=== PATIENT | female | born 1975 | race Caucasian/White ===

== ENCOUNTER 2018-03-11 17:52 | Inpatient (IN) ==
[2018-03-11] MEDS ORDERED: methylPREDNISolone SOD SUC 125 MG/2 ML VIAL IV STA (18:03)
[2018-03-11] MEDS ORDERED: ORPHENADRINE 60 MG/2 ML VIAL IV STA (18:03)
[2018-03-11] MEDS ORDERED: KETOROLAC 30 MG/1 ML VIAL IV STA (18:03)
[2018-03-11] MEDS ORDERED: METOCLOPRAMIDE 10 MG/2 ML VIAL ONE (18:14)
[2018-03-11] MEDS ORDERED: METOCLOPRAMIDE 10 MG/2 ML VIAL IV STA (18:15)
[2018-03-11] MEDS ORDERED: methylPREDNISolone SOD SUC 125 MG/2 ML VIAL ONE (18:40)
[2018-03-11] MEDS ORDERED: ORPHENADRINE 60 MG/2 ML VIAL ONE (18:40)
[2018-03-11] MEDS ORDERED: KETOROLAC 30 MG/1 ML VIAL ONE ×2 (18:41→20:08)
[2018-03-11] MEDS ORDERED: ONDANSETRON 4 MG/2 ML VIAL IV STA (18:54)
[2018-03-11] MEDS ORDERED: ONDANSETRON 4 MG/2 ML VIAL ONE (18:59)
[2018-03-11] MEDS ORDERED: fentaNYL 100 MCG/2 ML VIAL IV STA (19:46)
[2018-03-11 20:05] LABS: Basophils % 0.3 % (0.0-0.8); Eosinophils # 0.1 10*3/uL (0.0-0.87); Eosinophils % 0.7 % (0.00-10.9); Hematocrit 36.3 VOL% (35.7-47.0); Hemoglobin 11.8 GM/DL (12.0-16.0); Immature Granulocytes % 0.4 %; Immature Granulocytes Absolute 0.06 #; Lymphocytes # 2.4 10*3/uL (1.4-4.0); Lymphocytes % 18.1 % (21.3-54.2); Mean Corpuscular HGB Conc 32.5 GM/DL (32-36); Mean Corpuscular Hemoglobin 28 PG (27-34); Mean Corpuscular Volume 87.1 FL (87-102); Mean Platelet Volume 9.6 FL (9.6-12.0); Monocytes # 0.5 10*3/uL (0.11-0.8); Monocytes % 3.4 % (1.7-12.7); Neutrophils # 10.3 10*3/uL (1.4-7.4); Neutrophils % 77.1 % (38.7-73.9); Platelet Count 304 T/CUMM (130-400); Red Blood Count 4.17 MC/CUMM (3.8-5.5); Red Cell Distribution Width 14.5 % (9.3-17.3); White Blood Count 13.4 T/CUMM (4-12)
[2018-03-11 20:20] LABS: PT Patient Result 10.6 SECS
[2018-03-11 20:21] LABS: Alanine Aminotransferase 18 U/L (13-56); Albumin 2.9 G/DL (3.4-5.0); Alkaline Phosphatase 100 U/L (45-117); Aspartate Amino Transferase 11 U/L (0-37); Bilirubin,Total < 0.39 MG/DL (0.2-1.0); Blood Urea Nitrogen 14 MG/DL (7-18); Calcium 8.5 MG/DL (8.5-10.1); Glucose 134 MG/DL (74-106); Osmolality,Calculated 272.1 MOS/KG (273-304); Potassium 3.1 MMOL/L (3.5-5.1); Sodium 135 MMOL/L (136-145); Total Protein 6.9 G/DL (6.4-8.3)
[2018-03-11] MEDS ORDERED: ACETAMINOPHEN 325 MG TABLET PO PRN (21:18)
[2018-03-11] MEDS ORDERED: hydroCHLOROthiazide 25 MG TABLET PO PRN (21:45)
[2018-03-11] MEDS: lamoTRIgine 100 MG TABLET PO SCH (23:24)
[2018-03-11] MEDS: ALPRAZolam 0.5 MG TABLET PO SCH (23:52)
[2018-03-11] MEDS: MORPHINE 4 MG/1 ML VIAL IV SCH (23:52)
[2018-03-11] MEDS: ONDANSETRON 4 MG/2 ML VIAL IV PRN (23:52)
[2018-03-12] MEDS: NICOTINE 21 MG/24 HR PATCH TRANSDERM PRN (00:18)
[2018-03-12] MEDS: PROMETHAZINE 25 MG TABLET PO PRN ×3 (01:14→19:11)
[2018-03-12] MEDS: KETOROLAC 30 MG/1 ML VIAL IV SCH ×4 (02:00→21:10)
[2018-03-12] MEDS: MORPHINE 4 MG/1 ML VIAL IV SCH ×6 (02:00→22:35)
[2018-03-12] MEDS: ONDANSETRON 4 MG/2 ML VIAL IV PRN ×2 (05:57→22:32)
[2018-03-12 06:48] LABS: Basophils % 0.1 % (0.0-0.8); Hematocrit 38.4 VOL% (35.7-47.0); Hemoglobin 12.8 GM/DL (12.0-16.0); Immature Granulocytes % 0.3 %; Immature Granulocytes Absolute 0.03 #; Lymphocytes % 10.4 % (21.3-54.2); Mean Corpuscular HGB Conc 33.3 GM/DL (32-36); Mean Corpuscular Hemoglobin 28 PG (27-34); Mean Corpuscular Volume 84.6 FL (87-102); Monocytes # 0.1 10*3/uL (0.11-0.8); Monocytes % 0.8 % (1.7-12.7); Neutrophils % 88.4 % (38.7-73.9); Platelet Count 325 T/CUMM (130-400); Red Blood Count 4.54 MC/CUMM (3.8-5.5); Red Cell Distribution Width 14.6 % (9.3-17.3); White Blood Count 9.1 T/CUMM (4-12)
[2018-03-12 07:20] LABS: Calcium 9.1 MG/DL (8.5-10.1); Osmolality,Calculated 275.8 MOS/KG (273-304); Potassium 3.3 MMOL/L (3.5-5.1)
[2018-03-12] MEDS: tiZANidine 4 MG TABLET PO SCH ×3 (09:22→21:10)
[2018-03-12] MEDS: lamoTRIgine 100 MG TABLET PO SCH ×2 (09:22→21:10)
[2018-03-12] MEDS: ALPRAZolam 0.5 MG TABLET PO SCH ×2 (09:22→21:10)
[2018-03-12] MEDS: GABAPENTIN 600 MG TABLET PO SCH ×3 (09:22→21:10)
[2018-03-12] MEDS: ESTRADIOL 1 MG TABLET PO SCH (09:22)
[2018-03-12] MEDS: POTASSIUM CHLORIDE 10 MEQ TABLET PO SCH (09:23)
[2018-03-12] MEDS: DULoxetine 30 MG CAPSULE PO SCH (09:23)
[2018-03-12] MEDS: oxyCODONE/ACETAMINOPHEN 5-325 MG TABLET PO SCH ×3 (09:24→21:10)
[2018-03-12] MEDS: ENOXAPARIN 40 MG/0.4 ML SYRINGE SUBCUT SCH (09:24)
[2018-03-12] MEDS: LIDOCAINE 5% PATCH TRANSDERM SCH (09:24)
[2018-03-12] MEDS: LORazepam 0.5 MG TABLET PO PRN (10:35)
[2018-03-12] MEDS: ATORVASTATIN 40 MG TABLET PO SCH (21:10)
[2018-03-13] MEDS: KETOROLAC 30 MG/1 ML VIAL IV SCH ×4 (02:10→20:25)
[2018-03-13] MEDS: PROMETHAZINE 25 MG TABLET PO PRN ×3 (02:10→18:24)
[2018-03-13] MEDS: MORPHINE 4 MG/1 ML VIAL IV SCH ×6 (02:10→21:25)
[2018-03-13 05:40] LABS: Basophils % 0.3 % (0.0-0.8); Eosinophils # 0.1 10*3/uL (0.0-0.87); Eosinophils % 0.8 % (0.00-10.9); Hemoglobin 12.4 GM/DL (12.0-16.0); Immature Granulocytes % 0.3 %; Immature Granulocytes Absolute 0.03 #; Lymphocytes # 3.5 10*3/uL (1.4-4.0); Lymphocytes % 35.5 % (21.3-54.2); Mean Corpuscular HGB Conc 31.8 GM/DL (32-36); Mean Corpuscular Hemoglobin 28 PG (27-34); Mean Platelet Volume 9.6 FL (9.6-12.0); Monocytes # 0.4 10*3/uL (0.11-0.8); Monocytes % 4.4 % (1.7-12.7); Neutrophils # 5.8 10*3/uL (1.4-7.4); Neutrophils % 58.7 % (38.7-73.9); Platelet Count 285 T/CUMM (130-400); Red Blood Count 4.38 MC/CUMM (3.8-5.5); Red Cell Distribution Width 14.6 % (9.3-17.3); White Blood Count 9.9 T/CUMM (4-12)
[2018-03-13] MEDS: LORazepam 0.5 MG TABLET PO PRN (06:02)
[2018-03-13 06:17] LABS: Calcium 8.4 MG/DL (8.5-10.1); Osmolality,Calculated 283.3 MOS/KG (273-304); Potassium 3.3 MMOL/L (3.5-5.1)
[2018-03-13] MEDS: tiZANidine 4 MG TABLET PO SCH ×3 (08:31→20:24)
[2018-03-13] MEDS: GABAPENTIN 600 MG TABLET PO SCH ×3 (08:31→20:23)
[2018-03-13] MEDS: lamoTRIgine 100 MG TABLET PO SCH ×2 (08:31→20:25)
[2018-03-13] MEDS: ESTRADIOL 1 MG TABLET PO SCH (08:31)
[2018-03-13] MEDS: ALPRAZolam 0.5 MG TABLET PO SCH ×2 (08:31→20:23)
[2018-03-13] MEDS: oxyCODONE/ACETAMINOPHEN 5-325 MG TABLET PO SCH ×3 (08:31→20:25)
[2018-03-13] MEDS: POTASSIUM CHLORIDE 10 MEQ TABLET PO SCH (08:31)
[2018-03-13] MEDS: DULoxetine 30 MG CAPSULE PO SCH (08:31)
[2018-03-13] MEDS: LIDOCAINE 5% PATCH TRANSDERM SCH (08:32)
[2018-03-13] MEDS: ENOXAPARIN 40 MG/0.4 ML SYRINGE SUBCUT SCH (08:32)
[2018-03-13] MEDS: ONDANSETRON 4 MG/2 ML VIAL IV PRN ×2 (14:43→21:26)
[2018-03-13] MEDS: ATORVASTATIN 40 MG TABLET PO SCH (20:24)
[2018-03-14] MEDS: MORPHINE 4 MG/1 ML VIAL IV SCH ×6 (02:24→21:09)
[2018-03-14] MEDS: KETOROLAC 30 MG/1 ML VIAL IV SCH ×4 (02:24→20:06)
[2018-03-14 04:24] LABS: Calcium 8.3 MG/DL (8.5-10.1); Osmolality,Calculated 283.1 MOS/KG (273-304); Potassium 3.8 MMOL/L (3.5-5.1)
[2018-03-14] MEDS: LORazepam 0.5 MG TABLET PO PRN (05:02)
[2018-03-14] MEDS: PROMETHAZINE 25 MG TABLET PO PRN ×3 (06:10→21:09)
[2018-03-14] MEDS: ESTRADIOL 1 MG TABLET PO SCH (09:16)
[2018-03-14] MEDS: ALPRAZolam 0.5 MG TABLET PO SCH ×2 (09:16→20:09)
[2018-03-14] MEDS: GABAPENTIN 600 MG TABLET PO SCH ×3 (09:16→20:07)
[2018-03-14] MEDS: lamoTRIgine 100 MG TABLET PO SCH ×2 (09:16→20:07)
[2018-03-14] MEDS: POTASSIUM CHLORIDE 10 MEQ TABLET PO SCH (09:16)
[2018-03-14] MEDS: oxyCODONE/ACETAMINOPHEN 5-325 MG TABLET PO SCH ×3 (09:17→20:09)
[2018-03-14] MEDS: ENOXAPARIN 40 MG/0.4 ML SYRINGE SUBCUT SCH (09:17)
[2018-03-14] MEDS: DULoxetine 30 MG CAPSULE PO SCH (09:17)
[2018-03-14] MEDS: LIDOCAINE 5% PATCH TRANSDERM SCH (09:18)
[2018-03-14] MEDS: tiZANidine 4 MG TABLET PO SCH ×3 (09:19→20:08)
[2018-03-14] MEDS: NICOTINE 21 MG/24 HR PATCH TRANSDERM PRN (09:33)
[2018-03-14] MEDS: ONDANSETRON 4 MG/2 ML VIAL IV PRN (17:37)
[2018-03-14] MEDS: ATORVASTATIN 40 MG TABLET PO SCH (20:08)
[2018-03-15] MEDS: MORPHINE 4 MG/1 ML VIAL IV SCH ×5 (01:04→17:22)
[2018-03-15] MEDS: KETOROLAC 30 MG/1 ML VIAL IV SCH ×4 (01:04→21:03)
[2018-03-15] MEDS: BISACODYL 5 MG TABLET PO PRN ×2 (01:10→10:19)
[2018-03-15] MEDS: ONDANSETRON 4 MG/2 ML VIAL IV PRN ×2 (01:13→10:22)
[2018-03-15] MEDS: LORazepam 0.5 MG TABLET PO PRN (05:02)
[2018-03-15] MEDS: PROMETHAZINE 25 MG TABLET PO PRN ×3 (05:02→22:19)
[2018-03-15] MEDS: LIDOCAINE 5% PATCH TRANSDERM SCH (10:07)
[2018-03-15] MEDS: ENOXAPARIN 40 MG/0.4 ML SYRINGE SUBCUT SCH (10:09)
[2018-03-15] MEDS: NICOTINE 21 MG/24 HR PATCH TRANSDERM PRN (10:12)
[2018-03-15] MEDS: ESTRADIOL 1 MG TABLET PO SCH (10:17)
[2018-03-15] MEDS: GABAPENTIN 600 MG TABLET PO SCH ×3 (10:17→22:19)
[2018-03-15] MEDS: POTASSIUM CHLORIDE 10 MEQ TABLET PO SCH (10:17)
[2018-03-15] MEDS: ALPRAZolam 0.5 MG TABLET PO SCH ×2 (10:17→22:20)
[2018-03-15] MEDS: lamoTRIgine 100 MG TABLET PO SCH ×2 (10:18→22:19)
[2018-03-15] MEDS: DULoxetine 30 MG CAPSULE PO SCH (10:18)
[2018-03-15] MEDS: oxyCODONE/ACETAMINOPHEN 5-325 MG TABLET PO SCH ×3 (10:18→22:20)
[2018-03-15] MEDS: tiZANidine 4 MG TABLET PO SCH ×3 (10:18→22:20)
[2018-03-15] MEDS: DOCUSATE SODIUM 100 MG CAPSULE PO SCH (22:19)
[2018-03-15] MEDS: ATORVASTATIN 40 MG TABLET PO SCH (22:19)
[2018-03-16] MEDS: MORPHINE 4 MG/1 ML VIAL IV SCH ×5 (01:00→14:32)
[2018-03-16] MEDS: KETOROLAC 30 MG/1 ML VIAL IV SCH ×3 (01:01→15:11)
[2018-03-16] MEDS: ONDANSETRON 4 MG/2 ML VIAL IV PRN ×2 (01:01→07:50)
[2018-03-16] MEDS: BISACODYL 5 MG TABLET PO PRN (06:10)
[2018-03-16] MEDS ORDERED: SIMETHICONE CHEW 125 MG TABLET PO PRN (08:03)
[2018-03-16] MEDS ORDERED: POLYETHYLENE GLYCOL POWDER 17 GM PACK PO SCH (09:00)
[2018-03-16] MEDS: DULoxetine 30 MG CAPSULE PO SCH (09:37)
[2018-03-16] MEDS: ESTRADIOL 1 MG TABLET PO SCH (09:37)
[2018-03-16] MEDS: DOCUSATE SODIUM 100 MG CAPSULE PO SCH (09:37)
[2018-03-16] MEDS: POTASSIUM CHLORIDE 10 MEQ TABLET PO SCH (09:37)
[2018-03-16] MEDS: lamoTRIgine 100 MG TABLET PO SCH (09:37)
[2018-03-16] MEDS: LIDOCAINE 5% PATCH TRANSDERM SCH (09:38)
[2018-03-16] MEDS: ENOXAPARIN 40 MG/0.4 ML SYRINGE SUBCUT SCH (09:38)
[2018-03-16] MEDS: GABAPENTIN 600 MG TABLET PO SCH ×2 (09:39→15:10)
[2018-03-16] MEDS: oxyCODONE/ACETAMINOPHEN 5-325 MG TABLET PO SCH ×2 (09:39→15:00)
[2018-03-16] MEDS: ALPRAZolam 0.5 MG TABLET PO SCH (09:40)
[2018-03-16] MEDS: tiZANidine 4 MG TABLET PO SCH ×2 (09:40→15:10)
[2018-03-16 10:52] VITALS: BP 101/46
[2018-03-16] MEDS: NICOTINE 21 MG/24 HR PATCH TRANSDERM PRN (15:14)
== END 2018-03-16 15:18 | DRG 347 ==
LOC: EDUNIT# → EDBD → N.ED 17:52 → N.EDINP 17:52 → SUATTDRO 20:46 → N.EDINP 22:24 → N.3E 22:56 → SUATTDRO 03-13 11:36
PROVIDERS: ADMIT Internal Medicine; ATTEND Internal Medicine Geriatric Medicine

== ENCOUNTER 2018-03-18 14:44 | Inpatient (IN) ==
[2018-03-18] MEDS ORDERED: ONDANSETRON 4 MG/2 ML VIAL ONE (15:44)
[2018-03-18] MEDS ORDERED: HYDROmorphone 2 MG/1 ML VIAL ONE (15:45)
[2018-03-18] MEDS ORDERED: HYDROmorphone 2 MG/1 ML VIAL IV STA (15:51)
[2018-03-18] MEDS ORDERED: ONDANSETRON 4 MG/2 ML VIAL IV STA (15:51)
[2018-03-18 16:27] LABS: Basophils % 0.1 % (0.0-0.8); Eosinophils # 0.1 10*3/uL (0.0-0.87); Eosinophils % 1.1 % (0.00-10.9); Hematocrit 31.4 VOL% (35.7-47.0); Immature Granulocytes % 1.1 %; Immature Granulocytes Absolute 0.09 #; Lymphocytes # 1.6 10*3/uL (1.4-4.0); Lymphocytes % 19.2 % (21.3-54.2); Mean Corpuscular HGB Conc 31.8 GM/DL (32-36); Mean Corpuscular Hemoglobin 29 PG (27-34); Mean Platelet Volume 9.3 FL (9.6-12.0); Monocytes # 0.5 10*3/uL (0.11-0.8); NRBC # 0.02 10*3/uL; Neutrophils # 5.9 10*3/uL (1.4-7.4); Neutrophils % 72.5 % (38.7-73.9); Platelet Count 243 T/CUMM (130-400); Red Blood Count 3.45 MC/CUMM (3.8-5.5); Red Cell Distribution Width 15.9 % (9.3-17.3); White Blood Count 8.2 T/CUMM (4-12)
[2018-03-18 16:40] LABS: INR 0.9; Partial Thromboplastin Time 29.9 SECS (0-40)
[2018-03-18 16:43] LABS: ABG Base Excess 7.5 MMOL/L (-2.5-2.5); ABG HCO3 31.2 MMOL/L (20-26); ABG Oxygen Saturation 90.7 % (95-100); ABG PCO2 56.8 MM HG (35-48); ABG PH 7.387 (7.35-7.45); ABG PO2 61.4 MM HG (80-95); ABG TCO2 31.1 MMOL/L (23-27)
[2018-03-18] MEDS ORDERED: cefTRIAXone 1,000 MG in SODIUM CHLORIDE 0.9% 100 ML IV STA (16:47)
[2018-03-18 16:50] LABS: Alanine Aminotransferase 10 U/L (13-56); Albumin 2.2 G/DL (3.4-5.0); Alkaline Phosphatase 100 U/L (45-117); Aspartate Amino Transferase 6 U/L (0-37); Bilirubin,Total < 0.39 MG/DL (0.2-1.0); Blood Urea Nitrogen 6 MG/DL (7-18); Calcium 7.7 MG/DL (8.5-10.1); Glucose 93 MG/DL (74-106); Osmolality,Calculated 276.4 MOS/KG (273-304); Sodium 140 MMOL/L (136-145); Total Protein 5.9 G/DL (6.4-8.3); Troponin I Only < 0.015 NG/ML (0.00-0.045)
[2018-03-18] MEDS ORDERED: ALBUTEROL NEB SOLN 5 MG/ML 20 ML/BOTTLE CONT NEB STA (16:51)
[2018-03-18] MEDS ORDERED: ACETAMINOPHEN 325 MG TABLET PO PRN (17:52)
[2018-03-18] MEDS ORDERED: ALBUTEROL 2.5 MG/3 ML NEB RESP TX PRN (17:59)
[2018-03-18] MEDS: ALBUTEROL 2.5 MG/3 ML NEB RESP TX SCH (19:25)
[2018-03-18] MEDS: SODIUM CHLORIDE 0.9% 1,000 ML IV SCH (19:46)
[2018-03-18] MEDS: GABAPENTIN 600 MG TABLET PO SCH (20:50)
[2018-03-18] MEDS: oxyCODONE/ACETAMINOPHEN 5-325 MG TABLET PO SCH (20:51)
[2018-03-18] MEDS: tiZANidine 4 MG TABLET PO SCH (20:51)
[2018-03-18] MEDS: ENOXAPARIN 40 MG/0.4 ML SYRINGE SUBCUT SCH (20:51)
[2018-03-18] MEDS: lamoTRIgine 100 MG TABLET PO SCH (20:51)
[2018-03-18] MEDS: LORazepam 0.5 MG TABLET PO PRN (20:58)
[2018-03-18] MEDS: ONDANSETRON 4 MG/2 ML VIAL IV PRN (20:59)
[2018-03-18] MEDS: AZITHROMYCIN INJ 500 MG in SODIUM CHLORIDE 0.9% 250 ML IV SCH (21:10)
[2018-03-18] MEDS ORDERED: ZALEPLON 5 MG CAPSULE PO SCH (22:30)
[2018-03-18] MEDS: ZOLPIDEM 5 MG TABLET PO SCH (22:45)
[2018-03-18] MEDS: KETOROLAC 15 MG/1 ML VIAL IV PRN (22:48)
[2018-03-19] MEDS: ALBUTEROL 2.5 MG/3 ML NEB RESP TX SCH ×4 (00:12→19:21)
[2018-03-19 00:44] LABS: Lactic Acid 2.1 MMOL/L (0.4-2.0)
[2018-03-19] MEDS: SODIUM CHLORIDE 0.9% 1,000 ML IV SCH ×3 (02:19→19:15)
[2018-03-19 04:14] LABS: Basophils % 0.1 % (0.0-0.8); Eosinophils # 0.1 10*3/uL (0.0-0.87); Eosinophils % 0.7 % (0.00-10.9); Hematocrit 29.1 VOL% (35.7-47.0); Immature Granulocytes % 0.9 %; Immature Granulocytes Absolute 0.08 #; Lymphocytes # 1.7 10*3/uL (1.4-4.0); Lymphocytes % 19.5 % (21.3-54.2); Mean Corpuscular HGB Conc 30.9 GM/DL (32-36); Mean Corpuscular Hemoglobin 28 PG (27-34); Mean Corpuscular Volume 90.9 FL (87-102); Mean Platelet Volume 9.6 FL (9.6-12.0); Monocytes # 0.6 10*3/uL (0.11-0.8); Monocytes % 6.8 % (1.7-12.7); NRBC # 0.02 10*3/uL; Neutrophils # 6.1 10*3/uL (1.4-7.4); Platelet Count 258 T/CUMM (130-400); Red Cell Distribution Width 15.9 % (9.3-17.3); White Blood Count 8.5 T/CUMM (4-12)
[2018-03-19 04:40] LABS: Osmolality,Calculated 284.8 MOS/KG (273-304); Potassium 3.7 MMOL/L (3.5-5.1)
[2018-03-19] MEDS: KETOROLAC 15 MG/1 ML VIAL IV PRN ×2 (06:25→12:49)
[2018-03-19] MEDS: ATORVASTATIN 40 MG TABLET PO SCH (08:50)
[2018-03-19] MEDS: tiZANidine 4 MG TABLET PO SCH ×3 (08:50→20:19)
[2018-03-19] MEDS: POLYETHYLENE GLYCOL POWDER 17 GM PACK PO SCH (08:50)
[2018-03-19] MEDS: oxyCODONE/ACETAMINOPHEN 5-325 MG TABLET PO SCH (08:50)
[2018-03-19] MEDS: hydroCHLOROthiazide 25 MG TABLET PO PRN (08:51)
[2018-03-19] MEDS: GABAPENTIN 600 MG TABLET PO SCH ×3 (08:51→20:19)
[2018-03-19] MEDS: PANTOPRAZOLE 40 MG TABLET PO SCH (08:51)
[2018-03-19] MEDS: SIMETHICONE CHEW 125 MG TABLET PO PRN (08:51)
[2018-03-19] MEDS: lamoTRIgine 100 MG TABLET PO SCH ×2 (08:51→20:20)
[2018-03-19] MEDS: ESTRADIOL 1 MG TABLET PO SCH (08:51)
[2018-03-19] MEDS: POTASSIUM CHLORIDE 10 MEQ TABLET PO SCH (08:51)
[2018-03-19] MEDS: DULoxetine 30 MG CAPSULE PO SCH (08:51)
[2018-03-19] MEDS ORDERED: diphenhydrAMINE CAP 50 MG CAPSULE ONE (12:00)
[2018-03-19] MEDS: LORazepam 0.5 MG TABLET PO PRN ×2 (12:50→17:00)
[2018-03-19] MEDS: FLUCONAZOLE INJ 200 MG in PREMIX 1 EACH IV SCH (13:24)
[2018-03-19] MEDS ORDERED: cefTRIAXone 1,000 MG in SYRINGE 1 EACH IV SCH (15:00)
[2018-03-19 15:10] LABS: Alanine Aminotransferase 12 U/L (13-56); Albumin 2.2 G/DL (3.4-5.0); Alkaline Phosphatase 129 U/L (45-117); Aspartate Amino Transferase 12 U/L (0-37); Bilirubin,Direct < 0.100 MG/DL (0.0-0.20); Bilirubin,Indirect 0.3 MG/DL (0.0-1.0); Cholesterol 109 MG/DL (50-200); HDL Cholesterol 44 MG/DL (40-60); Risk Ratio 2.48; Total Protein 5.8 G/DL (6.4-8.3); Triglycerides 109 MG/DL (2-150); VLDL CHOLESTEROL 21.8 MG/DL
[2018-03-19] MEDS: LEVOFLOXACIN INJ 750 MG in PREMIX 1 EACH IV SCH (15:44)
[2018-03-19 16:00] LABS: Hepatitis A Ab IgM Result Negative (Negative); Hepatitis B Core IgM Quant 0.15 Index; Hepatitis B Core IgM Result Negative (Negative); Hepatitis B Surface Ag Quant < 0.10 Index; Hepatitis B Surface Ag Result Negative (Negative); Hepatitis C Virus Ab Quant 0.11 Index; Hepatitis C Virus Ab Result Negative (Negative)
[2018-03-19] MEDS: diphenhydrAMINE CAP 50 MG CAPSULE PO PRN (17:00)
[2018-03-19] MEDS: ONDANSETRON 4 MG/2 ML VIAL IV PRN (17:00)
[2018-03-19] MEDS: MEPERIDINE 25 MG/1 ML VIAL IV PRN ×2 (17:01→23:05)
[2018-03-19] MEDS: NYSTATIN 500,000 UNIT/5 ML UDCUP SWISH/SWAL SCH ×2 (17:02→20:20)
[2018-03-19] MEDS ORDERED: diphenhydrAMINE CAP 50 MG CAPSULE PO SCH (18:00)
[2018-03-19] MEDS: diphenhydrAMINE 2% CREAM 28 GM TUBE TOP PRN (19:30)
[2018-03-19] MEDS ORDERED: predniSONE 20 MG TABLET PO ONE (19:42)
[2018-03-19] MEDS: ENOXAPARIN 40 MG/0.4 ML SYRINGE SUBCUT SCH (20:18)
[2018-03-19] MEDS: ZOLPIDEM 5 MG TABLET PO SCH (20:19)
[2018-03-19] MEDS: ALPRAZolam 0.5 MG TABLET PO SCH (20:19)
[2018-03-19] MEDS: AZITHROMYCIN INJ 500 MG in SODIUM CHLORIDE 0.9% 250 ML IV SCH (20:29)
[2018-03-19] MEDS: oxyCODONE/ACETAMINOPHEN 5-325 MG TABLET PO PRN (20:32)
[2018-03-20] MEDS: ALBUTEROL 2.5 MG/3 ML NEB RESP TX SCH ×4 (00:24→20:00)
[2018-03-20] MEDS: SODIUM CHLORIDE 0.9% 1,000 ML IV SCH ×2 (00:59→19:44)
[2018-03-20] MEDS: ONDANSETRON 4 MG/2 ML VIAL IV PRN ×2 (03:32→09:09)
[2018-03-20] MEDS: diphenhydrAMINE CAP 50 MG CAPSULE PO PRN (03:32)
[2018-03-20] MEDS: LORazepam 0.5 MG TABLET PO PRN ×2 (03:38→16:30)
[2018-03-20 05:17] LABS: ABG Base Excess 4.2 MMOL/L (-2.5-2.5); ABG Oxygen Saturation 88.7 % (95-100); ABG PCO2 57.5 MM HG (35-48); ABG PH 7.343 (7.35-7.45); ABG PO2 59.9 MM HG (80-95); ABG TCO2 28.6 MMOL/L (23-27); Allen Test Positive
[2018-03-20] MEDS: MEPERIDINE 25 MG/1 ML VIAL IV PRN ×3 (05:40→19:30)
[2018-03-20 05:42] LABS: Basophils % 0.2 % (0.0-0.8); Eosinophils % 0.4 % (0.00-10.9); Hemoglobin 9.9 GM/DL (12.0-16.0); Lymphocytes # 0.8 10*3/uL (1.4-4.0); Lymphocytes % 8.6 % (21.3-54.2); Mean Corpuscular HGB Conc 31.9 GM/DL (32-36); Mean Corpuscular Hemoglobin 29 PG (27-34); Mean Corpuscular Volume 89.6 FL (87-102); Mean Platelet Volume 9.5 FL (9.6-12.0); Monocytes # 0.3 10*3/uL (0.11-0.8); Monocytes % 2.6 % (1.7-12.7); NRBC # 0.04 10*3/uL; Neutrophils # 8.6 10*3/uL (1.4-7.4); Neutrophils % 87.2 % (38.7-73.9); Platelet Count 304 T/CUMM (130-400); Red Blood Count 3.46 MC/CUMM (3.8-5.5); Red Cell Distribution Width 16.3 % (9.3-17.3); White Blood Count 9.8 T/CUMM (4-12)
[2018-03-20 06:02] LABS: Calcium 8.6 MG/DL (8.5-10.1); Osmolality,Calculated 277.4 MOS/KG (273-304); Potassium 4.6 MMOL/L (3.5-5.1)
[2018-03-20] MEDS: SIMETHICONE CHEW 125 MG TABLET PO PRN (09:08)
[2018-03-20] MEDS: PANTOPRAZOLE 40 MG TABLET PO SCH (09:08)
[2018-03-20] MEDS: ATORVASTATIN 40 MG TABLET PO SCH (09:08)
[2018-03-20] MEDS: GABAPENTIN 600 MG TABLET PO SCH ×3 (09:08→20:38)
[2018-03-20] MEDS: oxyCODONE/ACETAMINOPHEN 5-325 MG TABLET PO PRN ×3 (09:08→23:59)
[2018-03-20] MEDS: lamoTRIgine 100 MG TABLET PO SCH ×2 (09:09→20:38)
[2018-03-20] MEDS: POTASSIUM CHLORIDE 10 MEQ TABLET PO SCH (09:09)
[2018-03-20] MEDS: tiZANidine 4 MG TABLET PO SCH ×3 (09:09→20:38)
[2018-03-20] MEDS: NYSTATIN 500,000 UNIT/5 ML UDCUP SWISH/SWAL SCH ×4 (09:09→20:38)
[2018-03-20] MEDS: hydroCHLOROthiazide 25 MG TABLET PO PRN (09:09)
[2018-03-20] MEDS: ESTRADIOL 1 MG TABLET PO SCH (09:09)
[2018-03-20] MEDS: ALPRAZolam 0.5 MG TABLET PO SCH ×3 (09:09→20:38)
[2018-03-20] MEDS: DULoxetine 30 MG CAPSULE PO SCH (09:16)
[2018-03-20] MEDS: POLYETHYLENE GLYCOL POWDER 17 GM PACK PO SCH (09:17)
[2018-03-20] MEDS ORDERED: methylPREDNISolone SOD SUC 125 MG/2 ML VIAL IV ONE (09:53)
[2018-03-20 11:50] LABS: Free T4 (Free Thyroxine) 0.79 NG/DL (0.76-1.46); Thyroid Stimulating Hormone 1.46 uIU/ml (0.358-3.74)
[2018-03-20] MEDS: FLUCONAZOLE INJ 200 MG in PREMIX 1 EACH IV SCH (16:33)
[2018-03-20] MEDS: LEVOFLOXACIN INJ 750 MG in PREMIX 1 EACH IV SCH (16:33)
[2018-03-20] MEDS: methylPREDNISolone SOD SUC 40 MG/1 ML VIAL IV SCH (19:29)
[2018-03-20] MEDS: NICOTINE 21 MG/24 HR PATCH TRANSDERM PRN (19:42)
[2018-03-20] MEDS: ZOLPIDEM 5 MG TABLET PO SCH (20:38)
[2018-03-20] MEDS: ENOXAPARIN 40 MG/0.4 ML SYRINGE SUBCUT SCH (20:38)
[2018-03-20] MEDS ORDERED: AZITHROMYCIN 250 MG TABLET PO SCH (21:00)
[2018-03-21] MEDS: LORazepam 0.5 MG TABLET PO PRN ×2 (00:39→17:02)
[2018-03-21] MEDS: ALBUTEROL 2.5 MG/3 ML NEB RESP TX SCH ×4 (00:54→19:48)
[2018-03-21] MEDS: methylPREDNISolone SOD SUC 40 MG/1 ML VIAL IV SCH ×3 (02:33→17:50)
[2018-03-21] MEDS: MEPERIDINE 25 MG/1 ML VIAL IV PRN ×3 (04:02→17:46)
[2018-03-21] MEDS: diphenhydrAMINE CAP 50 MG CAPSULE PO PRN ×2 (04:02→15:49)
[2018-03-21 04:19] LABS: ABG Base Excess 7.6 MMOL/L (-2.5-2.5); ABG HCO3 31.1 MMOL/L (20-26); ABG Oxygen Saturation 79.1 % (95-100); ABG PCO2 57.7 MM HG (35-48); ABG PH 7.382 (7.35-7.45); ABG PO2 46.5 MM HG (80-95); ABG TCO2 31.6 MMOL/L (23-27)
[2018-03-21 05:15] LABS: Basophils % 0.1 % (0.0-0.8); Hemoglobin 9.6 GM/DL (12.0-16.0); Immature Granulocytes % 2.1 %; Immature Granulocytes Absolute 0.27 #; Lymphocytes # 1.5 10*3/uL (1.4-4.0); Lymphocytes % 11.6 % (21.3-54.2); Mean Corpuscular Hemoglobin 29 PG (27-34); Mean Platelet Volume 9.7 FL (9.6-12.0); Monocytes # 0.5 10*3/uL (0.11-0.8); Monocytes % 4.2 % (1.7-12.7); NRBC # 0.03 10*3/uL; Neutrophils # 10.4 10*3/uL (1.4-7.4); Platelet Count 312 T/CUMM (130-400); Red Blood Count 3.37 MC/CUMM (3.8-5.5); Red Cell Distribution Width 15.9 % (9.3-17.3); White Blood Count 12.7 T/CUMM (4-12)
[2018-03-21 05:38] LABS: Calcium 8.8 MG/DL (8.5-10.1); Osmolality,Calculated 276.7 MOS/KG (273-304); Potassium 4.2 MMOL/L (3.5-5.1)
[2018-03-21] MEDS: oxyCODONE/ACETAMINOPHEN 5-325 MG TABLET PO PRN ×3 (08:25→21:45)
[2018-03-21] MEDS: ALPRAZolam 0.5 MG TABLET PO SCH ×3 (10:00→20:44)
[2018-03-21] MEDS: ESTRADIOL 1 MG TABLET PO SCH (10:00)
[2018-03-21] MEDS: ATORVASTATIN 40 MG TABLET PO SCH (10:00)
[2018-03-21] MEDS: tiZANidine 4 MG TABLET PO SCH ×3 (10:01→20:44)
[2018-03-21] MEDS: DULoxetine 30 MG CAPSULE PO SCH (10:01)
[2018-03-21] MEDS: GABAPENTIN 600 MG TABLET PO SCH ×3 (10:01→20:44)
[2018-03-21] MEDS: POTASSIUM CHLORIDE 10 MEQ TABLET PO SCH (10:02)
[2018-03-21] MEDS: PANTOPRAZOLE 40 MG TABLET PO SCH (10:02)
[2018-03-21] MEDS: POLYETHYLENE GLYCOL POWDER 17 GM PACK PO SCH (10:04)
[2018-03-21] MEDS: NYSTATIN 500,000 UNIT/5 ML UDCUP SWISH/SWAL SCH ×4 (10:04→20:44)
[2018-03-21] MEDS: lamoTRIgine 100 MG TABLET PO SCH ×2 (10:08→20:44)
[2018-03-21] MEDS: diphenhydrAMINE 2% CREAM 28 GM TUBE TOP PRN (12:00)
[2018-03-21] MEDS: FLUCONAZOLE INJ 200 MG in PREMIX 1 EACH IV SCH (14:02)
[2018-03-21] MEDS: LEVOFLOXACIN INJ 750 MG in PREMIX 1 EACH IV SCH (15:45)
[2018-03-21] MEDS: ENOXAPARIN 40 MG/0.4 ML SYRINGE SUBCUT SCH (20:44)
[2018-03-21] MEDS: ZOLPIDEM 5 MG TABLET PO SCH (20:44)
[2018-03-21] MEDS: NICOTINE 21 MG/24 HR PATCH TRANSDERM PRN (20:47)
[2018-03-22] MEDS: MEPERIDINE 25 MG/1 ML VIAL IV PRN ×4 (00:49→22:42)
[2018-03-22] MEDS: ALBUTEROL 2.5 MG/3 ML NEB RESP TX SCH ×4 (02:04→19:21)
[2018-03-22] MEDS: methylPREDNISolone SOD SUC 40 MG/1 ML VIAL IV SCH ×3 (02:50→17:28)
[2018-03-22 04:29] LABS: Allen Test Positive
[2018-03-22 04:30] LABS: ABG Base Excess 6.7 MMOL/L (-2.5-2.5); ABG HCO3 30.5 MMOL/L (20-26); ABG Oxygen Saturation 96.2 % (95-100); ABG PCO2 55.8 MM HG (35-48); ABG PH 7.382 (7.35-7.45); ABG PO2 86.4 MM HG (80-95); ABG TCO2 30.4 MMOL/L (23-27)
[2018-03-22] MEDS: oxyCODONE/ACETAMINOPHEN 5-325 MG TABLET PO PRN ×3 (05:41→20:41)
[2018-03-22] MEDS: SODIUM CHLORIDE 0.9% 1,000 ML IV SCH (07:18)
[2018-03-22] MEDS: POTASSIUM CHLORIDE 10 MEQ TABLET PO SCH (09:48)
[2018-03-22] MEDS: ESTRADIOL 1 MG TABLET PO SCH (09:48)
[2018-03-22] MEDS: hydroCHLOROthiazide 25 MG TABLET PO SCH (09:48)
[2018-03-22] MEDS: DULoxetine 30 MG CAPSULE PO SCH (09:48)
[2018-03-22] MEDS: ATORVASTATIN 40 MG TABLET PO SCH (09:48)
[2018-03-22] MEDS: lamoTRIgine 100 MG TABLET PO SCH ×2 (09:48→20:40)
[2018-03-22] MEDS: POLYETHYLENE GLYCOL POWDER 17 GM PACK PO SCH (09:49)
[2018-03-22] MEDS: NYSTATIN 500,000 UNIT/5 ML UDCUP SWISH/SWAL SCH ×4 (09:49→20:41)
[2018-03-22] MEDS: ALPRAZolam 0.5 MG TABLET PO SCH ×3 (09:49→20:41)
[2018-03-22] MEDS: PANTOPRAZOLE 40 MG TABLET PO SCH (09:49)
[2018-03-22] MEDS: GABAPENTIN 600 MG TABLET PO SCH ×3 (09:49→20:41)
[2018-03-22] MEDS: tiZANidine 4 MG TABLET PO SCH ×3 (09:50→20:40)
[2018-03-22] MEDS: diphenhydrAMINE CAP 50 MG CAPSULE PO PRN (11:09)
[2018-03-22] MEDS: LORazepam 0.5 MG TABLET PO PRN (12:19)
[2018-03-22] MEDS: ONDANSETRON 4 MG/2 ML VIAL IV PRN ×2 (12:20→20:39)
[2018-03-22] MEDS: FLUCONAZOLE INJ 200 MG in PREMIX 1 EACH IV SCH (14:29)
[2018-03-22] MEDS: LEVOFLOXACIN INJ 750 MG in PREMIX 1 EACH IV SCH (15:14)
[2018-03-22] MEDS: NICOTINE 21 MG/24 HR PATCH TRANSDERM PRN (20:40)
[2018-03-22] MEDS: ENOXAPARIN 40 MG/0.4 ML SYRINGE SUBCUT SCH (20:40)
[2018-03-22] MEDS: ZOLPIDEM 5 MG TABLET PO SCH (20:41)
[2018-03-23] MEDS: ALBUTEROL 2.5 MG/3 ML NEB RESP TX SCH ×2 (01:19→07:31)
[2018-03-23] MEDS: oxyCODONE/ACETAMINOPHEN 5-325 MG TABLET PO PRN ×2 (02:44→09:39)
[2018-03-23] MEDS: ONDANSETRON 4 MG/2 ML VIAL IV PRN (02:53)
[2018-03-23 03:41] LABS: ABG Base Excess 8.7 MMOL/L (-2.5-2.5); ABG HCO3 32.4 MMOL/L (20-26); ABG PCO2 63.7 MM HG (35-48); ABG PH 7.362 (7.35-7.45); ABG PO2 87.3 MM HG (80-95)
[2018-03-23 04:47] LABS: Basophils % 0.2 % (0.0-0.8); Hematocrit 32.7 VOL% (35.7-47.0); Hemoglobin 10.4 GM/DL (12.0-16.0); Immature Granulocytes % 5.3 %; Immature Granulocytes Absolute 0.89 #; Lymphocytes # 2.4 10*3/uL (1.4-4.0); Mean Corpuscular HGB Conc 31.8 GM/DL (32-36); Mean Corpuscular Hemoglobin 28 PG (27-34); Mean Corpuscular Volume 89.1 FL (87-102); Mean Platelet Volume 9.3 FL (9.6-12.0); Monocytes # 1.2 10*3/uL (0.11-0.8); Monocytes % 6.8 % (1.7-12.7); NRBC # 0.09 10*3/uL; Neutrophils # 12.5 10*3/uL (1.4-7.4); Neutrophils % 73.7 % (38.7-73.9); Platelet Count 347 T/CUMM (130-400); Red Blood Count 3.67 MC/CUMM (3.8-5.5); Red Cell Distribution Width 15.9 % (9.3-17.3); White Blood Count 16.9 T/CUMM (4-12)
[2018-03-23 05:05] LABS: Calcium 8.9 MG/DL (8.5-10.1); Osmolality,Calculated 284.3 MOS/KG (273-304); Potassium 4.1 MMOL/L (3.5-5.1)
[2018-03-23] MEDS: methylPREDNISolone SOD SUC 40 MG/1 ML VIAL IV SCH (05:22)
[2018-03-23 05:34] LABS: Lymphocytes 15 % (20-55); Segmented Neutrophils 78 % (50-85); Total Cells Counted 100
[2018-03-23 05:35] LABS: Hypochromasia Slight; Microcytosis 1+; Ovalocytes Slight; Platelet Estimate Normal
[2018-03-23 05:36] LABS: Anisocytosis 1+
[2018-03-23] MEDS: MEPERIDINE 25 MG/1 ML VIAL IV PRN (05:51)
[2018-03-23] MEDS: LORazepam 0.5 MG TABLET PO PRN (07:07)
[2018-03-23] MEDS ORDERED: FLUCONAZOLE 100 MG TABLET PO SCH (09:00)
[2018-03-23] MEDS ORDERED: LEVOFLOXACIN 750 MG TABLET PO SCH (09:00)
[2018-03-23] MEDS: ATORVASTATIN 40 MG TABLET PO SCH (09:12)
[2018-03-23] MEDS: ESTRADIOL 1 MG TABLET PO SCH (09:12)
[2018-03-23] MEDS: hydroCHLOROthiazide 25 MG TABLET PO SCH (09:12)
[2018-03-23] MEDS: lamoTRIgine 100 MG TABLET PO SCH (09:12)
[2018-03-23] MEDS: DULoxetine 30 MG CAPSULE PO SCH (09:12)
[2018-03-23] MEDS: SIMETHICONE CHEW 125 MG TABLET PO PRN (09:12)
[2018-03-23] MEDS: POTASSIUM CHLORIDE 10 MEQ TABLET PO SCH (09:12)
[2018-03-23] MEDS: PANTOPRAZOLE 40 MG TABLET PO SCH (09:12)
[2018-03-23] MEDS: ALPRAZolam 0.5 MG TABLET PO SCH (09:13)
[2018-03-23] MEDS: GABAPENTIN 600 MG TABLET PO SCH (09:13)
[2018-03-23] MEDS: POLYETHYLENE GLYCOL POWDER 17 GM PACK PO SCH (09:33)
[2018-03-23] MEDS: tiZANidine 4 MG TABLET PO SCH (09:34)
[2018-03-23] MEDS: NYSTATIN 500,000 UNIT/5 ML UDCUP SWISH/SWAL SCH (09:34)
[2018-03-23] MEDS ORDERED: predniSONE 20 MG TABLET PO SCH (10:00)
[2018-03-23 10:58] VITALS: BP 137/77
== END 2018-03-23 11:45 | disposition home or self-care (01) | DRG 139 ==
LOC: EDBD → EDUNIT# → N.ED 14:44 → N.EDINP 17:53 → N.3E 18:49
PROVIDERS: ADMIT Family Medicine; ATTEND Family Medicine